=== PATIENT | female | born 1990 | race Caucasian/White ===

== ENCOUNTER 2019-06-09 12:54 | Emergency (ER) | payer SELFPAY ==
[2019-06-09 12:58] VITALS: BP 136/76
--- NOTE | 2019-06-09 13:09 | ER Report ---
History and Physical Time Seen By MD: 13:00 Hx. of Stated Complaint: patient reports working outside and branch on tree hit her in the right eye. was able to open eye initially, but is having a lot of pain now. HPI/ROS CHIEF COMPLAINT: Eye pain HISTORY OF PRESENT ILLNESS: Pt is a 28 year old F here with right eye pain that started at 9:30am after a branch hit her eye at work. Pain has progressively worsened with photophobia and pain with movement. keeping lid closed helps with the pain. Rated a 9/10 on pain scale. Allergies: Coded Allergies: No Known Drug Allergies (Unverified , 06/09/19) Past Medical/Surgical History Patient denies any pertient medical or surgical medical history Reviewed Nurses Notes: Yes Hx Substance Use Disorder: No Hx Alcohol Use: No Constitutional Vital Sign - Last 24 Hours 06/09/19 12:58 Temp 98.5 Pulse 84 Resp 16 B/P (MAP) 136/76 Pulse Ox 95 O2 Delivery Room Air Physical Exam General appearance: Alert no distress. Eyes: right sclera is injected and watery. EOMI. Right eye 20/30 L eye 20/40. abrasion of upper right iris visualized on Fluorescence exam Respiratory: Chest is non tender, lungs are clear to auscultation. Cardiac: Regular rate and rhythm DIFFERENTIAL DIAGNOSIS: After history and physical exam differential diagnosis was considered for corneal abrasion, conjunctivitis, ruptured globe, corneal ulcer Medical Decision Making ED Course/Re-evaluation ED Course Patient was admitted to an exam room, history and physical were obtained. Differential diagnoses were considered. On examination patient did have redness injection of the right eye. A visual acuity exam was done which showed visual acuity of 20/40 in the right eye, 20/30 in the left eye. A fluorescein exam was done which showed a corneal abrasion at 12:00 to the pupil. Patient was placed on Tobrex antibiotic drops 2 drops 6 times a day for the next 7 days. 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 She is return to emergency room if condition worsens. Patient verbalized understanding and agreement with plan. Decision to Disposition Date: Jun 09, 2019 Decision to Disposition Time: 13:33 Depart Departure Latest Vital Signs Vital Signs Date Time Temp Pulse Resp B/P (MAP) Pulse Ox O2 Delivery O2 Flow Rate FiO2 06/09/19 12:58 98.5 84 16 136/76 95 Room Air Impression: Primary Impression: Corneal abrasion Condition: Improved Disposition: HOME OR SELF-CARE Patient Instructions: Corneal Abrasion (ED) Additional Instructions: Apply 2 drops 6 times per day. OTC saline drops PRN. Rest eye from sun exposure until for several days. Recommended to wear eye protection at work. Follow up with optometry with any concerns. Problem Qualifiers Primary Impression: Corneal abrasion Encounter type: initial encounter Laterality: right Qualified Codes: S05.01XA - Injury of conjunctiva and corneal abrasion without foreign body, right eye, initial encounter CORINNA MCPHERSON Jun 09, 2019 13:09
[2019-06-09] MEDS ORDERED: PROPARACAINE 0.5% OP 15ML BTL OD ONE (13:10)
[2019-06-09] MEDS ORDERED: FLUORESCEIN SOD 1 MG 1 EA STRP OD ONE (13:10)
[2019-06-09] MEDS ORDERED: TOBRAMYCIN 0.3% OP SOLN 5 ML OD ONE (13:20)
== END 2019-06-09 13:54 | disposition home or self-care (01) ==
LOC: ER 13:33
DX: S05.01XA Injury of conjunctiva and corneal abrasion without foreign body, right eye, initial encounter (principal)
CPT/HCPCS: 99283